=== PATIENT | female | born 1985 | race Caucasian/White ===

== ENCOUNTER 2016-11-25 15:00 | Inpatient (IN) | payer OTHER ==
[2016-11-25] MEDS: DEXTROSE 5%-LACTATED RINGERS 1,000 ML IV SCH ×2 (16:30→19:40)
[2016-11-25 16:39] LABS: BASOPHIL 0.3 % (0-2.0); EOSINOPHIL 0.4 % (0-4.5); MCH 28.1 pg (25.7-33.7); MCHC 32.5 g/dl (32.0-36.0); MEAN CELL VOLUME 86.5 fl (80-96); MEAN PLT VOLUME 8.1 fl (7.5-11.1); NEUTROPHILS 78.4 % (42.8-82.8); PLATELET COUNT 237 K/MM3 (134-434); RDW 14.8 % (11.6-15.6); WHITE BLOOD COUNT 16.2 K/mm3 (4.0-10.0)
[2016-11-25 16:42] VITALS: BMI 32.1
[2016-11-25] MEDS ORDERED: TUBERCULIN PPD 5 TU/0.1ML SYRINGE (IN PATIENT USE ONLY) ID ONE (16:45)
[2016-11-25 16:54] LABS: INR 1.06 (0.82-1.09); PROTHROMBIN TIME (PATIENT) 11.7 SEC (9.98-11.88)
[2016-11-25 16:57] LABS: ACTIVATED PTT 28.4 SECONDS (26.9-34.4)
[2016-11-25 17:03] LABS: CALCIUM 8.9 mg/dL (8.5-10.1); CREATININE 0.4 mg/dL (0.55-1.02)
[2016-11-25 18:12] LABS: HIV 1 & 2 AB NEGATIVE; HIV 1 AGp24 NEGATIVE
[2016-11-25] MEDS ORDERED: BUTORPHANOL TARTRATE 1 MG/ML VIAL IVPUSH PRN (19:09)
[2016-11-25] MEDS ORDERED: PROMETHAZINE HCL 25 MG/1 ML VIAL IVPUSH ONE (19:09)
[2016-11-25] MEDS: OXYTOCIN 15 UNITS/ LR 250 ML 250 ML IVPB SCH (19:20)
--- NOTE | 2016-11-25 19:25 | HP ---
Past Medical History - Primary Care Physician PCP:: Lee Alvarez - Admission Chief Complaint: 38.6 weeks, prom History of Present Illness: 31 yo f edc by sono 12/03/16 c/o srom since 130 pm today, occasional mild cramps ,clear fluid , no fever , no bleeding, cx 1 cm, 70 vx -3, gross leakage of clear fluid . no contraction, fhr cat 1 History Source: Patient Limitations to Obtaining History: No Limitations - Past Medical History ...: 5 ...Para: 1 ...Term: 1 ...: 0 ...Spon : 1 ...Induced : 2 ...Multiple Gestation: 0 ...LMP: 03/01/16 ... Weeks Gestation by Dates: 38.1 ...EDC by Dates: 12/08/16 ...EDC by Sono: 12/03/16 - Past Surgical History Hx Myomectomy: No Hx Transabdominal Cerclage: No - Smoking History Smoking history: Never smoked Have you smoked in the past 12 months: Yes Aproximately how many cigarettes per day: 6 - Alcohol/Substance Use Hx Alcohol Use: No History of Substance Use: reports: None - Social History Usual Living Arrangement: Yes: With Spouse History of Recent Travel: No Home Medications - Allergies Allergies/Adverse Reactions: Allergies Allergy/AdvReac Type Severity Reaction Status Date / Time No Known Allergies Allergy Verified 11/25/16 16:25 - Home Medications Home Medications: Ambulatory Orders Vit/Iron Fumarate/FA [ Tablet] 1 each PO DAILY 08/30/16 Review of Systems - Review of Systems Constitutional: reports: No Symptoms Eyes: reports: No Symptoms HENT: reports: No Symptoms Neck: reports: No Symptoms Cardiovascular: reports: No Symptoms Respiratory: reports: No Symptoms Gastrointestinal: reports: No Symptoms Genitourinary: reports: No Symptoms Breasts: reports: No Symptoms Reported Musculoskeletal: reports: No Symptoms Integumentary: reports: No Symptoms Neurological: reports: No Symptoms Endocrine: reports: No Symptoms Hematology/Lymphatic: reports: No Symptoms Psychiatric: reports: No Symptoms Physical Exam - Maternity Vital Signs: Vital Signs Temperature 98.0 F 11/25/16 18:00 Pulse Rate 89 11/25/16 18:00 Respiratory Rate 20 11/25/16 18:00 Blood Pressure 115/65 01/13/17 18:00 O2 Sat by Pulse Oximetry (%) Constitutional: Yes: Well Nourished, No Distress, Calm Eyes: Yes: WNL, Conjunctiva Clear, EOM Intact HENT: Yes: WNL, Atraumatic, Normocephalic Neck: Yes: WNL, Supple, Trachea Midline Cardiovascular: Yes: WNL, Regular Rate and Rhythm Breast(s): Yes: WNL - Abdominal Exam/OB Number of Fetuses: Single Presentation: Vertex Contractions: No Monitor Mode: External Heart Rate Location: [facility] Category: I Accelerations: Uniform Decelerations: None - Vaginal Exam/OB Vaginal Bleediing: No Speculum Exam: Yes Dilatation (cm): 1cm Effacement (%): 70 Amniotic Membrane Status: Ruptured Nitrazine Test: Positive Amniotic Fluid: Yes: Clear Presentation: Vertex/Position Station: -3 - Physical Exam Musculoskeletal: Yes: WNL Extremities: Yes: WNL Edema: Yes Edema: LLE: 1+, RLE: 1+ Deep Tendon Reflex Grade: Normal +2 ...Motor Strength: WNL Psychiatric: Yes: WNL - Labs Lab Results: CBC, BMP 11/25/16 16:33 11/25/16 16:33 Hemorrhage Risk Assessment - Risk Factors Medium Risk Factors: Yes: None Risk Score: 1 Risk Level: Medium Risk Problem List - Problems (1) with 38 completed weeks gestation Code(s): Z3A.38 - 38 WEEKS GESTATION OF (2) Premature rupture of membranes Code(s): O42.90 - JANIE ROM, 7TH0 BETW RUPT & ONST LABR, UNSP WEEKS OF GEST Assessment/Plan admit, fhm, expectant management vs pitocin induction discussed , rba explained
[2016-11-26] MEDS ORDERED: ELECTROLYTE-148 SOLN 500 ML IV ONE (01:20)
[2016-11-26] MEDS: ELECTROLYTE-148 SOLN 1,000 ML IV SCH ×2 (01:50→05:15)
[2016-11-26] MEDS ORDERED: FENTANYL/BUPIVACAINE/NS/PF - PCEA - 50 ML DISP.SYRIN EP SCH (03:00)
--- NOTE | 2016-11-26 06:09 | PN ---
Progress Note (short form) - Note Progress Note: cx full 100 vx 2+ variable decel with contraction , she is pushing Problem List - Problems (1) with 38 completed weeks gestation Code(s): Z3A.38 - 38 WEEKS GESTATION OF (2) Premature rupture of membranes Code(s): O42.90 - JANIE ROM, 7TH0 BETW RUPT & ONST LABR, UNSP WEEKS OF GEST
[2016-11-26] MEDS ORDERED: BENZOCAINE 20% 57 GM BOTTLE TP PRN (06:29)
[2016-11-26] MEDS ORDERED: BENZOCAINE 28 GM HEMORRHOIDAL OINTMENT TP PRN (06:29)
[2016-11-26] MEDS ORDERED: METHYLERGONOVINE MALEATE 0.2 MG/1 ML AMP IM PRN (06:29)
[2016-11-26] MEDS ORDERED: WITCH HAZEL 50% (TUCKS) 40 PAD/JAR PAD TP PRN (06:29)
[2016-11-26] MEDS ORDERED: BISACODYL 10 MG SUPP.RECT RC PRN (06:29)
[2016-11-26] MEDS ORDERED: D5W-LR W/ 20 UNITS OXYTOCIN 1,000 ML IV SCH (06:30)
[2016-11-26] MEDS: FERROUS SO4 325 MG TABLET (FP) PO SCH ×2 (10:29→21:03)
[2016-11-26] MEDS: PRENATAL VITAMINS W/ FOLIC ACID TABLET (FP) PO SCH (10:30)
[2016-11-26] MEDS: IBUPROFEN 600 MG TABLET (FP) PO PRN (20:55)
[2016-11-26] MEDS: OXYTOCIN 15 UNITS/ LR 250 ML 250 ML IVPB SCH (20:59)
[2016-11-27 07:43] LABS: BASOPHIL 0.3 % (0-2.0); MCH 29.1 pg (25.7-33.7); MCHC 33.2 g/dl (32.0-36.0); MEAN CELL VOLUME 87.5 fl (80-96); MEAN PLT VOLUME 8.2 fl (7.5-11.1); NEUTROPHILS 76.4 % (42.8-82.8); PLATELET COUNT 192 K/MM3 (134-434); RDW 14.7 % (11.6-15.6); WHITE BLOOD COUNT 18.4 K/mm3 (4.0-10.0)
[2016-11-27] MEDS: IBUPROFEN 600 MG TABLET (FP) PO PRN ×2 (08:20→20:29)
[2016-11-27] MEDS: ACETAMINOPHEN 325 MG TABLET (FP) PO PRN (08:21)
--- NOTE | 2016-11-27 10:35 | PN ---
Progress Note (short form) - Note Progress Note: ppd 1 no c/o voids ok, no excess vaginal bleeding CBC, BMP 11/27/16 06:20 11/25/16 16:33 Last Vital Signs Temp Pulse Resp BP Pulse Ox 97.8 F 65 18 102/52 100 11/27/16 02:00 11/27/16 02:00 11/27/16 02:00 11/27/16 02:00 11/26/16 06:45 abdomen soft, non tender , no cva uterus firm, lochia mild no calf tenderness plan ambulate, observe cbc in am Problem List - Problems (1) with 38 completed weeks gestation Code(s): Z3A.38 - 38 WEEKS GESTATION OF (2) Premature rupture of membranes Code(s): O42.90 - JANIE ROM, 7TH0 BETW RUPT & ONST LABR, UNSP WEEKS OF GEST
[2016-11-27] MEDS: FERROUS SO4 325 MG TABLET (FP) PO SCH ×2 (11:01→22:45)
[2016-11-27] MEDS: PRENATAL VITAMINS W/ FOLIC ACID TABLET (FP) PO SCH (11:01)
[2016-11-27] MEDS ORDERED: SENNOSIDES/DOCUSATE COMBO (SENNA PLUS) TABLET (UD) PO PRN (22:00)
[2016-11-28 07:35] LABS: BASOPHIL 0.6 % (0-2.0); EOSINOPHIL 1.7 % (0-4.5); MCH 28.8 pg (25.7-33.7); MCHC 32.7 g/dl (32.0-36.0); NEUTROPHILS 61.4 % (42.8-82.8); PLATELET COUNT 222 K/MM3 (134-434); RDW 14.8 % (11.6-15.6); WHITE BLOOD COUNT 12.8 K/mm3 (4.0-10.0)
[2016-11-28] MEDS: IBUPROFEN 600 MG TABLET (FP) PO PRN (08:11)
[2016-11-28] MEDS: ACETAMINOPHEN 325 MG TABLET (FP) PO PRN (08:11)
[2016-11-28] MEDS: FERROUS SO4 325 MG TABLET (FP) PO SCH (10:12)
[2016-11-28] MEDS: PRENATAL VITAMINS W/ FOLIC ACID TABLET (FP) PO SCH (10:12)
[2016-11-28 14:04] VITALS: BP 117/67; PULSE 58; TEMP 97.8
== END 2016-11-28 11:20 | disposition home or self-care (01) | DRG 560 ==
LOC: JDEL 15:00 → JLDR 15:30 → J3W 11-26 08:20
PROVIDERS: ADMIT Obstetrics & Gynecology; ATTEND Obstetrics & Gynecology
PROC: 10E0XZZ Delivery of Products of Conception, External Approach (ICD-10-PCS; principal; 2016-11-26)
DX: O42.92 Full-term premature rupture of membranes, unspecified as to length of time between rupture and onset of labor (principal); Z3A.38 38 weeks gestation of pregnancy; Z37.0 Single live birth
CPT/HCPCS: 36415; 59409; 80048; 85025; 85610; 85730; 86593; 86850; 86900; 86901; 87389

== ENCOUNTER 2017-12-02 15:30 | Inpatient (IN) | payer OTHER ==
[2017-12-02] MEDS ORDERED: ELECTROLYTE-148 SOLN 500 ML IV ONE (16:07)
[2017-12-02] MEDS ORDERED: ELECTROLYTE-148 SOLN 1,000 ML IV SCH (16:15)
[2017-12-02] MEDS ORDERED: LIDOCAINE HCL 1% PRESERVATIVE FREE - 30ML VIAL ONE (16:27)
[2017-12-02 16:29] VITALS: BMI 37.2
--- NOTE | 2017-12-02 16:38 | HP ---
Past Medical History - Primary Care Physician PCP:: Jeremiah Jacome - Admission Chief Complaint: 32yo P2 with at EGA 39w6 admitted with spontaneous labor History of Present Illness: Short interval History Source: Patient, Medical Record Limitations to Obtaining History: No Limitations - Past Medical History [employer]: No: Alzheimer's, CVA, Dementia, Migraine, Multiple Sclerosis, Peripheral Neuropathy, Parkinson's, Seizure, Syncope, TIA, Vertigo, Other Cardiovascular: No: AFIB, Aneurysm, Aortic Insufficiency, Aortic Stenosis, CAD, CHF, Deep Vein Thrombosis, HTN, Hyperlipdemia, SC, Mitral Insufficiency, Mitral Stenosis, Murmur, Pulmonary Hypertension, Other Pulmonary: No: Asthma, Bronchitis, Cancer, COPD, O2 Dependent, Pneumonia, Previously Intubated, Pulmonary Embolus, Pulmonary Fibrosis, Sleep Apnea, Other Gastrointestinal: No: Ascites, Cancer, Constipation, Crohn's Disease, Diverticulitis, Diverticulosis, Esophageal Varices, Gastritis, GERD, GI Bleed, Hemorrhoids, Hiatal Hernia, Inflamatory Bowel Disease, Irritable Bowel Disease, Pancreatitis, Peptic Ulcer Disease, Ulcerative Colitis, Other Hepatobiliary: No: Cirrhosis, Cholelithiasis, Cholecystitis, Choledocholithiasis , Hepatitis A, Hepatitis B, Hepatitis C, Other Renal/: No: Renal Failure, Renal Inusuff, BPH, Cancer, Hematuria, Hemodialysis , Neurogenic Bladder, Renal Calculi, UTI, Other Reproductive: No: Ectopic , Endometriosis, Fibroids, PID, Polycystic Ovary Syndrome, Postmenopausal, Other ...Para: 2 Heme/Onc: Yes: Anemia Infectious Disease: No: AIDS, C-Diff, Herpes Zoster, HIV, MRSA, STD's, Tuberculosis, VREF, Other Psych: No: Addictions, Anxiety, Bipolar, Depression, Panic, Psychosis, Schizophrenia, Other Musculoskeletal: No: Bursitis, Chronic low back pain, Hemiparesis, Hemiplegia, Osteoarthritis, Paraplegia, Other Rheumatology: No: Fibromyalgia, Gout, Lupus, Rheumatoid Arthritis, Sarcoidosis, Vasculitis, Other ENT: No: Allergic Rhinitis, Sinusitis, Other Endocrine: No: Rj's Disease, Juan's Disease, Diabetes Insipidus, Diabetes Mellitus, Hyperparathyroidism, Hyperthyroidism, Hypothyroidism, Osteopenia, SIADH, Other Dermatology: No: Basal Cell, Cellulitis, Eczema, Melanoma, Psoriasis, Squamous Cell, Other - Past Surgical History Past Surgical History: Yes: None Hx Myomectomy: No Hx Transabdominal Cerclage: No - Smoking History Smoking history: Never smoked Have you smoked in the past 12 months: Yes Aproximately how many cigarettes per day: 6 - Alcohol/Substance Use Hx Alcohol Use: No History of Substance Use: reports: None - Social History Usual Living Arrangement: Yes: With Spouse, With Child History of Recent Travel: No Home Medications - Allergies Allergies/Adverse Reactions: Allergies Allergy/AdvReac Type Severity Reaction Status Date / Time No Known Allergies Allergy Verified 11/23/17 20:21 - Home Medications Home Medications: Ambulatory Orders Ferrous Sulfate [Feosol] 325 mg PO DAILY 11/23/17 Vit Calc,Iron,Folic [ Vitamins] 1 each PO DAILY 11/23/17 Family Disease History - Family Disease History Family History: Unremarkable Review of Systems - Review of Systems Constitutional: reports: Other (Active labor) Eyes: reports: No Symptoms HENT: reports: No Symptoms Neck: reports: No Symptoms Cardiovascular: reports: No Symptoms Respiratory: reports: No Symptoms Gastrointestinal: reports: No Symptoms Genitourinary: reports: No Symptoms Breasts: reports: No Symptoms Reported Musculoskeletal: reports: No Symptoms Integumentary: reports: No Symptoms Neurological: reports: No Symptoms Endocrine: reports: No Symptoms Hematology/Lymphatic: reports: No Symptoms Psychiatric: reports: No Symptoms Pain Intensity: 9 Physical Exam - Maternity Constitutional: Yes: Well Nourished, No Distress, Calm Eyes: Yes: WNL, Conjunctiva Clear HENT: Yes: WNL, Atraumatic, Normocephalic Neck: Yes: WNL, Supple, Trachea Midline Cardiovascular: Yes: WNL, Regular Rate and Rhythm Lungs: Clear to auscultation - Abdominal Exam/OB Fundal Height: 39 Number of Fetuses: Single Presentation: Vertex Contractions: Yes Regularity: Regular Intensity: Mod/Strong Monitor Mode: External Heart Rate Location: Midline Category: I Accelerations: Non-Uniform Decelerations: Variable - Vaginal Exam/OB Vaginal Bleediing: No Speculum Exam: No Dilatation (cm): 7 Effacement (%): 90 Amniotic Membrane Status: Intact Presentation: Vertex/Position Station: 0 - Physical Exam Musculoskeletal: Yes: WNL Extremities: Yes: WNL Edema: No Integumentary: Yes: WNL Deep Tendon Reflex Grade: Normal +2 ...Motor Strength: WNL Psychiatric: Yes: WNL, Alert, Oriented Hemorrhage Risk Assessment - Risk Factors Medium Risk Factors: Yes: None High Risk Factors: Yes: None Risk Score: 1 Risk Level: Medium Risk Imaging - Results Ultrasound: Report Reviewed Assessment/Plan 32yo P2 with at EGA 39w6 admitted with spontaneous labor. Pt progressed quickly in active labor and had without complications.
[2017-12-02] MEDS ORDERED: IBUPROFEN 600 MG TABLET (FP) PO ONE (17:17)
[2017-12-02] MEDS: IBUPROFEN 600 MG TABLET (FP) PO PRN ×2 (17:20→21:18)
[2017-12-02 17:30] LABS: BASO % 0.2 % (0-2.0); HEMATOCRIT 33.7 % (32.4-45.2); HEMOGLOBIN 10.8 GM/dL (10.7-15.3); LYMPH % 5.4 % (8-40); MCH 27.9 pg (25.7-33.7); MCHC 32.1 g/dl (32.0-36.0); MEAN CELL VOLUME 86.9 fl (80-96); MEAN PLT VOLUME 8.5 fl (7.5-11.1); NEUT % 89.4 % (42.8-82.8); PLATELET COUNT 212 K/MM3 (134-434); RBC 3.87 M/mm3 (3.60-5.2); RDW 15.2 % (11.6-15.6); WHITE BLOOD COUNT 19.2 K/mm3 (4.0-10.0)
[2017-12-02] MEDS ORDERED: BENZOCAINE 28 GM HEMORRHOIDAL OINTMENT TP PRN (17:35)
[2017-12-02] MEDS ORDERED: WITCH HAZEL 50% (TUCKS) 40 PAD/JAR PAD TP PRN (17:35)
[2017-12-02] MEDS ORDERED: BISACODYL 10 MG SUPP.RECT RC PRN (17:35)
[2017-12-02] MEDS ORDERED: BENZOCAINE 20% 57 GM BOTTLE TP PRN (17:35)
[2017-12-02] MEDS ORDERED: METHYLERGONOVINE MALEATE 0.2 MG/1 ML AMP IM PRN (17:35)
--- NOTE | 2017-12-02 17:35 | PN ---
Delivery - Delivery Vaginal Delivery: No Problems, Spontaneous Type of Anesthesia: None Episiotomy/Laceration: None EBL (cc): 300 Delivery, Single - Stages of Labor Date 1st Stage Initiatied: 12/02/17 Time 1st Stage Initiated: 10:00 Date 2nd Stage Initiated: 12/02/17 Time 2nd Stage Initiated: 16:40 Date of Delivery: 12/02/17 Time of Delivery: 16:42 Time Placenta Delivered: 16:50 Placenta: Yes: Spontaneous, Normal Configuration - Condition of Counter Hand/Relocation Specialist Present: No Infant Gender: Male Position: Left, OA Total Hours ROM (Hrs/Mins): 5M - 1 Minute Total Score: 9 5 Minutes Total Score: 9 - Feeding Plan Initial Plan: Elected not to breastfeed exclusively throughout hospitalization Remarks - Remarks Remarks: w/o complication
[2017-12-02 17:43] LABS: PROTHROMBIN TIME (PATIENT) 11.3 SEC (9.98-11.88)
[2017-12-02] MEDS ORDERED: OXYTOCIN 20 UNITS in 0.9% NS 20 UNIT/1,000 ML INFUS.BAG IV SCH (17:45)
[2017-12-02 17:46] LABS: ACTIVATED PTT 25.5 SECONDS (26.9-34.4)
[2017-12-02] MEDS ORDERED: OXYTOCIN 20 UNITS in 0.9% NS 20 UNIT/1,000 ML INFUS.BAG IV ONE (18:13)
[2017-12-02 18:28] LABS: ANION GAP 10 (8-16); BLOOD UREA NITROGEN 4 mg/dL (7-18); CALCIUM 7.7 mg/dL (8.5-10.1); CHLORIDE 105 mmol/L (98-107); CO2 23 mmol/L (21-32); CREATININE 0.5 mg/dL (0.55-1.02); GLUCOSE,RANDOM 92 mg/dL (74-106); POTASSIUM 3.8 mmol/L (3.5-5.1); SODIUM 138 mmol/L (136-145)
[2017-12-02] MEDS: ACETAMINOPHEN 325 MG TABLET (FP) PO PRN (21:20)
--- NOTE | 2017-12-03 08:07 | PN ---
Post Progress Note - Subjective Subjective: No complaints Post Day: 1 Type of Delivery: Vital Signs: Vital Signs Temperature 97.9 F 12/03/17 05:59 Pulse Rate 59 L 12/03/17 05:59 Respiratory Rate 18 12/03/17 05:59 Blood Pressure 92/52 12/03/17 05:59 O2 Sat by Pulse Oximetry (%) Breast Exam: Yes: Soft Uterus: Yes: Fundus Firm, Fundus below umbilicus, Non-tender Abdomen/GI: Yes: Abdomen soft, Tolerating PO Lochia: Yes: Rubra Lochia, amount: Small Extremities: Yes: Calves non-tender Perineum: Yes: Intact Activity: Ambulating - Labs Labs: CBC WBC 19.2 K/mm3 (4.0-10.0) H D 12/02/17 17:10 RBC 3.87 M/mm3 (3.60-5.2) 12/02/17 17:10 Hgb 10.8 GM/dL (10.7-15.3) 12/02/17 17:10 Hct 33.7 % (32.4-45.2) 12/02/17 17:10 MCV 86.9 fl (80-96) 12/02/17 17:10 MCH 27.9 pg (25.7-33.7) 12/02/17 17:10 MCHC 32.1 g/dl (32.0-36.0) 12/02/17 17:10 RDW 15.2 % (11.6-15.6) 12/02/17 17:10 Plt Count 212 K/MM3 (134-434) 12/02/17 17:10 MPV 8.5 fl (7.5-11.1) 12/02/17 17:10 Neutrophils % 89.4 % (42.8-82.8) H D 12/02/17 17:10 Lymphocytes % 5.4 % (8-40) L D 12/02/17 17:10 Monocytes % 5.0 % (3.8-10.2) 12/02/17 17:10 Eosinophils % 0.0 % (0-4.5) D 12/02/17 17:10 Basophils % 0.2 % (0-2.0) 12/02/17 17:10 Assessment/Plan 32yo P3 s/p , doing well stable, afebrile. Check WBC- pending care instructions reviewed. Continue routine care. Ambulation encouraged Discharge instruction reviewed.
[2017-12-03 08:08] LABS: BASO % 0.4 % (0-2.0); EOS % 0.3 % (0-4.5); HEMATOCRIT 31.1 % (32.4-45.2); HEMOGLOBIN 9.8 GM/dL (10.7-15.3); LYMPH % 12.7 % (8-40); MCH 27.6 pg (25.7-33.7); MCHC 31.5 g/dl (32.0-36.0); MEAN CELL VOLUME 87.5 fl (80-96); MEAN PLT VOLUME 8.2 fl (7.5-11.1); MONO % 4.7 % (3.8-10.2); NEUT % 81.9 % (42.8-82.8); PLATELET COUNT 200 K/MM3 (134-434); RBC 3.55 M/mm3 (3.60-5.2); RDW 15.4 % (11.6-15.6); WHITE BLOOD COUNT 18.1 K/mm3 (4.0-10.0)
[2017-12-03] MEDS: PRENATAL VITAMINS W/ FOLIC ACID TABLET (FP) PO SCH (10:19)
[2017-12-03] MEDS: ACETAMINOPHEN 325 MG TABLET (FP) PO PRN ×2 (15:38→21:48)
[2017-12-03] MEDS: IBUPROFEN 600 MG TABLET (FP) PO PRN ×2 (15:39→21:43)
[2017-12-03] MEDS ORDERED: SENNOSIDES/DOCUSATE COMBO (SENNA PLUS) TABLET (UD) PO PRN (22:00)
[2017-12-04] MEDS: PRENATAL VITAMINS W/ FOLIC ACID TABLET (FP) PO SCH (10:00)
[2017-12-04 18:14] VITALS: BP 118/71; PULSE 83; TEMP 98.7
== END 2017-12-04 16:00 | disposition home or self-care (01) | DRG 560 ==
LOC: JLDR 15:30 → J3W 20:00
PROVIDERS: ADMIT Obstetrics & Gynecology; ATTEND Obstetrics & Gynecology
PROC: 10E0XZZ Delivery of Products of Conception, External Approach (ICD-10-PCS; principal; 2017-12-02)
DX: O62.3 Precipitate labor (principal); Z3A.39 39 weeks gestation of pregnancy; Z37.0 Single live birth
CPT/HCPCS: 36415; 59409; 80048; 85025; 85610; 85730; 86593; 86850; 86900; 86901